=== PATIENT | male | born 1965 | race Caucasian/White ===

== ENCOUNTER → 2018-03-03 | Outpatient (CLI) | payer BC ==
--- NOTE | 2018-03-03 08:42 | CT ---
EXAMINATION TYPE: CT sinus wo con DATE OF EXAM: 03/03/2018 COMPARISON: CT facial bones May 04, 2009 HISTORY: Chronic sinusitis per order. Congestion, sinus drainage and facial pain. Prior surgery per patient. CT DLP: 693 mGycm. Automated Exposure Control for Dose Reduction was Utilized. TECHNIQUE: CT scan of the sinuses is performed without contrast, axial images are obtained, coronal r eformatted images are also reviewed. FINDINGS: There is mild to minimal eccentric cortical thickening in bilateral maxillary sinuses sligh tly less prominent from prior study. Bilateral frontal and sphenoid sinuses show no suspicious opacif ication or air-fluid levels. There is mild residual mucosal thickening in the bilateral ethmoid sinus es. The surgically treated ostiomeatal complex is widely patent bilaterally on the coronal images. Visualized portion of mastoid air cells show no abnormal opacification. The globes are intact bilate rally. Visualized portion of brain parenchyma is grossly unremarkable. IMPRESSION: No acute sinusitis. The surgically treated ostiomeatal complex is patent bilaterally. Mi ld to minimal residual chronic paranasal sinus disease.
== END ==
LOC: RADCTMAIN 07:59
PROVIDERS: ATTEND Family Medicine
DX: J32.9 Chronic sinusitis, unspecified (principal); Z98.890 Other specified postprocedural states
CPT/HCPCS: 70486

== ENCOUNTER → 2019-10-13 | Outpatient (CLI) | payer BC ==
--- NOTE | 2019-10-13 14:13 | EST ---
EXERCISE STRESS DATE OF SERVICE: 10/13/2019 AGE: 54 SEX: M HT: 6'1" WT: 199 lbs PROTOCOL: Stress Echo STAGE: 4 DURATION OF EXERCISE: 9 minutes, 42 seconds HEART RATE REST: 74 BLOOD PRESSURE REST: 120/74 MAXIMUM HEART RATE ACHIEVED: 159 MAXIMUM BLOOD PRESSURE: 161/81 85% MPHR: 143 100% MPHR: 168 METS: 10.9 INDICATIONS: Chest pain. REFERRING DOCTOR: Dr. Mcrae. STRESS DATA: Heart rate 76, pressure is 120/74 mmHg. Baseline EKG showed sinus mechanism. The patient exercised on the treadmill according to See protocol for a total of 9 minutes and 42 seconds and achieved 10.9 METS. Max heart rate was 159, which is about 95% of maximum predicted heart rate. Maximum blood pressure was 161/81 mmHg. Clinically the patient did not have any symptoms of chest pain or chest discomfort and the EKG did not show any significant ST or T-wave abnormalities concerning for ischemia. ECHOCARDIOGRAM IMAGES: On echocardiogram images from parasternal long axis view, parasternal short axis view, apical 4 chamber and apical 2 chambers were obtained as the baseline images, at the peak of the heart rate as well as on recovery and the echocardiogram images showed good augmentation in the left ventricular systolic function without any evidence of wall motion abnormalities concerning for ischemia. CONCLUSION: 1. Excellent exercise tolerance. 2. Normal EKG in response to exercise. 3. Normal echocardiogram in response to exercise. MMODL / IJN: [id number] /
== END | disposition home or self-care (01) ==
LOC: RADNMMAIN 09:02
PROVIDERS: ATTEND Family Medicine
DX: R06.00 Dyspnea, unspecified (principal)
CPT/HCPCS: 93351

== ENCOUNTER → 2020-03-16 | Outpatient (CLI) | payer BC ==
--- NOTE | 2020-03-16 13:22 | US ---
EXAMINATION TYPE: US scrotum with doppler. Grayscale and color Doppler Duplex imaging performed of tarsha canela scrotum. DATE OF EXAM: 03/16/2020 COMPARISON: US 12/26/2016 CLINICAL HISTORY: N50.819 TESTICLE PAIN. Rt testicular pain EXAM MEASUREMENTS: TESTICLES: Right Testicle: 4.1 x 2.1 x 2.4 cm Left Testicle: 4.1 x 2.2 x 2.4 cm EPIDIDYMIS HEAD: Right Epididymis: 0.7 cm Left Epididymis: 1.1 cm Doppler performed to assess for testicular vascularity; good bilateral color flow and waveforms are s een. There is no evidence of testicular torsion. Presence of hydroceles: Small amount of fluid visualized on the right Presence of varicoceles: Yes, left greater than right Scrotal gloria visualized on the right measuring 0.3 cm compatible with an extratesticular calcificat ion. IMPRESSION: 1. Bilateral varicoceles. 2. Small right hydrocele
== END | disposition home or self-care (01) ==
LOC: RADUSWWP 12:34
PROVIDERS: ATTEND Family Medicine
DX: N43.3 Hydrocele, unspecified (principal); I86.1 Scrotal varices
CPT/HCPCS: 76870; 93975

== ENCOUNTER → 2023-05-15 | Outpatient (CLI) | payer BC ==
--- NOTE | 2023-05-15 15:21 | US ---
EXAMINATION TYPE: US abdomen complete DATE OF EXAM: 05/15/2023 COMPARISON: NONE CLINICAL INDICATION: Male, 57 years old with history of R10.13 EPIGASTRIC PAIN; Epigastric x month. TECHNIQUE: Multiple sonographic images of the abdomen are obtained. FINDINGS: EXAM MEASUREMENTS: Liver Length: 15.2 cm Gallbladder Wall: 0.2 cm Spleen: 10.7 cm Right Kidney: 11.1 x 5.8 x 5.6 cm Left Kidney: 11.6 x 4.7 x 6.1 cm Pancreas: Tail not well seen. Echogenic in appearance. Liver: wnl Gallbladder: No stones or wall thickening Evidence for sonographic Mendoza's sign: neg CBD: Obscured by overlying bowel gas Spleen: wnl Right Kidney: No hydronephrosis or masses seen Left Kidney: No hydronephrosis or masses seen Upper IVC: wnl Abd Aorta: No AAA visualized at time of scan, limited visualization of mid portion due to overlying bowel gas The liver is homogenous. The intrahepatic portion of the IVC and proximal abdominal aorta are within normal limits. There is no evidence of cholelithiasis. Common bile duct is unremarkable. The visu alized portions of the pancreas are homogenous. The spleen is unremarkable. Kidneys are symmetric a nd free of hydronephrosis. No renal lesions are seen. IMPRESSION: No evidence for acute process.
== END | disposition home or self-care (01) ==
LOC: RADUSWWP 13:59
PROVIDERS: ATTEND Family Medicine
DX: R10.13 Epigastric pain (principal)
CPT/HCPCS: 76700

== ENCOUNTER 2024-02-29 15:59 | Emergency (ER) | payer OTHER, BC ==
--- NOTE | 2024-02-29 16:29 | ED ---
Fall HPI - General Stated Complaint: Fall/Back Time Seen by Provider: 02/29/24 16:28 Source: patient - History of Present Illness Initial Comments: 58-year-old male presented to the ER from [facility] for chief complaint of mid back injury 3 days ago. States he slipped and fell on ice, directly onto his mid back. Endorses pain and bruising at the site of injury. Denies hitting his head or losing consciousness. Denies saddle anesthesia or bowel or bladder incontinence. Denies blood thinners. - Related Data Home Medications Medication Instructions Recorded Confirmed Escitalopram Oxalate [Lexapro] 20 mg PO HS 05/24/15 05/24/15 Mag Carb/Aluminum Hydrox/Algin 355 ml PO DAILY 05/24/15 05/24/15 [Gaviscon Extra Strength Liquid] raNITIdine HCL [Zantac] 75 mg PO BID 05/24/15 05/24/15 Previous Rx's Medication Instructions Recorded Omeprazole [PriLOSEC] 40 mg PO AC-BRKFST #30 cap 05/24/15 Cyclobenzaprine [Flexeril] 10 mg PO TID PRN #15 tab 02/29/24 Lidocaine 4% Patch 1 patch TOPICAL DAILY PRN 7 Days 02/29/24 #7 patch Naproxen [EC-Naproxen] 500 mg PO Q12H PRN #30 tab 02/29/24 Allergies Allergy/AdvReac Type Severity Reaction Status Date / Time No Known Allergies Allergy Verified 02/29/24 17:28 Review of Systems ROS Statement: Those systems with pertinent positive or pertinent negative responses have been documented in the HPI. ROS Other: All systems not noted in ROS Statement are negative. Past Medical History Past Medical History: GERD/Reflux History of Any Multi-Drug Resistant Organisms: None Reported Additional Past Surgical History / Comment(s): nose Past Psychological History: No Psychological Hx Reported Past Alcohol Use History: None Reported Past Drug Use History: None Reported General Exam - General Exam Comments Initial Comments: Visual Physical Exam General: Well-appearing, nontoxic, no acute distress. Head: Normocephalic, atraumatic Eyes: PERRLA, EOMI ENT: Airway patent Chest: Nonlabored breathing Skin: No visual rash, normal skin tone Neuro: Alert and oriented 3 Musculoskeletal: No gross abnormalities General appearance: alert, in no apparent distress Head exam: Present: atraumatic, normocephalic, normal inspection Respiratory exam: Present: normal lung sounds bilaterally. Absent: respiratory distress, wheezes, rales, rhonchi, stridor Cardiovascular Exam: Present: regular rate, normal rhythm, normal heart sounds. Absent: systolic murmur, diastolic murmur, rubs, gallop, clicks GI/Abdominal exam: Present: soft, normal bowel sounds. Absent: distended, tenderness, guarding, rebound, rigid Back exam: Present: normal inspection, full ROM, tenderness (diffuse thoracic spine tenderness), paraspinal tenderness, other (Full strength and range of motion of bilateral hips, no saddle anesthesia, full sensation and DP pulses bilaterally). Absent: rash noted Neurological exam: Present: alert, oriented X3 Psychiatric exam: Present: normal affect, normal mood Skin exam: Present: warm, dry, intact, normal color. Absent: rash Course Vital Signs 02/29/24 17:25 Temperature 98.2 F Pulse Rate 78 Respiratory 18 Rate Blood Pressure 148/93 O2 Sat by Pulse 97 Oximetry Medical Decision Making - Medical Decision Making I completed the quick note portion of this chart signed Viridiana Weiss PA-C Was pt. sent in by a medical professional or institution (SILVIA Balderrama, DIRECTOR OF SPORTS MEDICINE, urgent care, hospital, or [facility]...) When possible be specific @ -No Did you speak to anyone other than the patient for history (EMS, parent, family, police, friend...)? What history was obtained from this source @ -No Did you review nursing and triage notes (agree or disagree)? Why? @ -I reviewed and agree with nursing and triage notes Were old charts reviewed (outside hosp., previous admission, EMS record, old EKG, old radiological studies, urgent care reports/EKG's, [facility] records)? Report findings @ -No old charts were reviewed Differential Diagnosis (chest pain, altered mental status, abdominal pain women, abdominal pain men, vaginal bleeding, weakness, fever, dyspnea, syncope, headache, dizziness, GI bleed, back pain, seizure, CVA, palpatations, mental health, musculoskeletal)? @ -Differential Back Pain: Strain, zoster, cauda equina syndrome, epidural abscess, vertebral osteomyelitis, discitis, fracture, subluxation, disc herniation, DJD, spinal stenosis, dissection, AAA, pancreatitis, peptic ulcer disease, pyelonephritis, kidney stone, this is not meant to be an all-inclusive list. EKG interpreted by me (3pts min.). @ -None X-rays interpreted by me (1pt min.). @ -X-ray thoracic spine reveals no acute fracture or dislocation CT interpreted by me (1pt min.). @ -None done U/S interpreted by me (1pt. min.). @ -None done What testing was considered but not performed or refused? (CT, X-rays, U/S, labs)? Why? @ -None What meds were considered but not given or refused? Why? @ -None Did you discuss the management of the patient with other professionals (professionals i.e. DrEmily, PA, DIRECTOR OF SPORTS MEDICINE, lab, RT, psych nurse, manager social media, telecommunications line mechanic, teacher, chief school finance officer, employment case manager)? Give summary @ -No Was smoking cessation discussed for >3mins.? @ -No Was critical care preformed (if so, how long)? @ -No Were there social determinants of health that impacted care today? How? (Homelessness, low income, unemployed, alcoholism, drug addiction, transportation, low edu. Level, literacy, decrease access to med. care, correction, rehab)? @ -No Was there de-escalation of care discussed even if they declined (Discuss DNR or withdrawal of care, Hospice)? DNR status @ -No What co-morbidities impacted this encounter? (DM, HTN, Smoking, COPD, CAD, Cancer, CVA, ARF, Chemo, Hep., AIDS, mental health diagnosis, sleep apnea, morbid obesity)? @ -None Was patient admitted / discharged? Hospital course, mention meds given and route, prescriptions, significant lab abnormalities, going to OR and other pertinent info. @ -Discharge. This is a 58-year-old male presenting for back injury 3 days ago. Neurovascularly intact. No red flag symptoms. Patient provided with analgesics for supportive care. X-ray thoracic spine reveals no acute fracture or dislocation. Results discussed with patient. Appropriate return precautions and follow-up care discussed. Case was discussed with the ED attending Dr. Garcia. Undiagnosed new problem with uncertain prognosis? @ -No Drug Therapy requiring intensive monitoring for toxicity (Heparin, Nitro, Insulin, Cardizem)? @ -No Were any procedures done? @ -No Diagnosis/symptom? @ -Back strain Acute, or Chronic, or Acute on Chronic? @ -Acute Uncomplicated (without systemic symptoms) or Complicated (systemic symptoms)? @ -Uncomplicated Side effects of treatment? @ -No Exacerbation, Progression, or Severe Exacerbation? @ -No Poses a threat to life or bodily function? How? (Chest pain, [place], [place], pneumonia, PE, COPD, DKA, ARF, appy, cholecystitis, CVA, Diverticulitis, Homicidal, Suicidal, threat to staff... and all critical care pts) @ -No Disposition Clinical Impression: Back strain Disposition: HOME SELF-CARE Condition: Stable Instructions (If sedation given, give patient instructions): Back Pain (ED) Additional Instructions: Take naproxen, Flexeril, and lidocaine patches as needed for pain. Please return to the Emergency Department if symptoms worsen or any other concerns. Prescriptions: Naproxen [EC-Naproxen] 500 mg PO Q12H PRN #30 tab PRN Reason: Pain Cyclobenzaprine [Flexeril] 10 mg PO TID PRN #15 tab PRN Reason: Muscle Spasm Lidocaine 4% Patch 1 patch TOPICAL DAILY PRN 7 Days #7 patch PRN Reason: Pain Is patient prescribed a controlled substance at d/c from ED?: No Referrals: Gutierrez Mcrae MD [Primary Care Provider] - 1-2 days Time of Disposition: 18:40
--- NOTE | 2024-02-29 17:14 | XR ---
EXAMINATION TYPE: XR thoracic spine 2V DATE OF EXAM: 02/29/2024 5:07 PM COMPARISON: None. CLINICAL INDICATION: Male, 58 years old with history of back injury, pain TECHNIQUE: Frontal, lateral, and swimmer's view of thoracic spine are obtained. FINDINGS: Thoracic spine show satisfactory slight scoliotic curvature in the upper lumbar spine witho ut evidence of acute fracture or dislocation. Vertebral body heights and disc space heights are pres erved. Visualized ribs are intact bilaterally. IMPRESSION: As above. [facility], , 02/29/2024 5:11 PM
[2024-02-29 17:29] VITALS: PULSE 78
[2024-02-29] MEDS: KETOROLAC 15 MG/ML 1 ML VIAL IM STA (18:57)
[2024-02-29] MEDS: ORPHENADRINE 30 MG/ML 2 ML VIAL IM STA (18:58)
[2024-02-29 19:01] VITALS: BP 135/78; RESP 161; TEMP 97.8
== END 2024-02-29 19:01 | disposition home or self-care (01) ==
LOC: EC 15:59
DX: S23.3XXA Sprain of ligaments of thoracic spine, initial encounter (principal); W00.0XXA Fall on same level due to ice and snow, initial encounter
CPT/HCPCS: 72070; 99283; 96372 ×2; J2360; J1885

== ENCOUNTER → 2024-03-01 | Outpatient (CLI) | payer OTHER ==
--- NOTE | 2024-03-01 17:09 | XR ---
EXAMINATION TYPE: XR chest 2V DATE OF EXAM: 03/01/2024 5:00 PM COMPARISON: Chest radiographs from 05/24/2015 CLINICAL INDICATION: Male, 58 years old with history of S20.229; TECHNIQUE: XR chest 2V Frontal and lateral views of the chest. FINDINGS: Lungs/Pleura: There is no evidence of pleural effusion, focal consolidation, or pneumothorax. Pulmonary vascularity: Unremarkable. Heart/mediastinum: Cardiomediastinal silhouette is unremarkable. Musculoskeletal: No acute osseous pathology. IMPRESSION: No acute cardiopulmonary disease/process. [facility], , 03/01/2024 5:06 PM
== END | disposition home or self-care (01) ==
LOC: RADXRMAIN 16:43
PROVIDERS: ATTEND Emergency Medicine
DX: S20.229A Contusion of unspecified back wall of thorax, initial encounter (principal); X58.XXXA Exposure to other specified factors, initial encounter
CPT/HCPCS: 71046

== ENCOUNTER → 2024-03-02 | Outpatient (CLI) | payer OTHER ==
--- NOTE | 2024-03-02 11:10 | CT ---
EXAMINATION TYPE: CT ChestAbdPelvis w con DATE OF EXAM: 03/02/2024 COMPARISON: None. HISTORY: MID BACK PAIN, FALL ON ICE CT DLP: 1260.30 mGycm. Automated Exposure Control for Dose Reduction was Utilized. CONTRAST: CT scan of the thorax, abdomen and pelvis is performed with oral and with IV Contrast, patient inject ed with 100 mL of Isovue 300. FINDINGS: LUNGS: There is some dependent atelectasis in bilateral lower lobes. There is additional mild bilater al lower lung linear scarring and/or atelectasis. No suspicious focal consolidation There is no pleu ral effusion or pneumothorax seen. The tracheobronchial tree is patent. MEDIASTINUM: There are no greater than 1 cm hilar or mediastinal lymph nodes. No cardiomegaly or pe ricardial effusion is seen. LIVER/GB: No significant abnormality is appreciated. PANCREAS: No significant abnormality is seen. SPLEEN: No significant abnormality is seen. ADRENALS: No significant abnormality is seen. KIDNEYS: No significant abnormality is seen. BOWEL: Oral contrast has not reached the terminal ileum making evaluation of distal bowel slightly iyer boptimal. No abnormal small or large bowel dilatation GENITAL ORGANS: No gross abnormality seen. LYMPH NODES: No greater than 1cm abdominal or pelvic lymph nodes are appreciated. OSSEOUS STRUCTURES: Suggesting facet arthropathy in the lower lumbar spine. OTHER: Small to moderate-sized fat-containing umbilical hernia sagittal image 61. IMPRESSION: No acute post traumatic finding in particular No acute osseous fracture, abnormal fluid c ollection, or evidence of solid organ injury in the thorax, abdomen, or pelvis. [facility], , 03/02/2024 11:08 AM
== END | disposition home or self-care (01) ==
LOC: RADCTMAIN 08:06
PROVIDERS: ATTEND Emergency Medicine
DX: S20.229D Contusion of unspecified back wall of thorax, subsequent encounter (principal); S30.0XXD Contusion of lower back and pelvis, subsequent encounter; R10.10 Upper abdominal pain, unspecified
CPT/HCPCS: 71260; 74177; Q9967